=== PATIENT | male | born 1960 | race African-American/Black ===

== ENCOUNTER 2018-11-18 16:23 | Emergency (ER) | payer OTHER ==
[~2018-11-18] VITALS: Ht 180.3 cm; Wt 77.0 kg
[2018-11-18 18:21] VITALS: BP 152/79
== END 2018-11-18 18:21 | DRG 87 ==
LOC: ED 16:23
DX: S02.0XXA Fracture of vault of skull, initial encounter for closed fracture (principal); S06.4X0A Epidural hemorrhage without loss of consciousness, initial encounter; S00.411A Abrasion of right ear, initial encounter; R51 Headache; Y08.89XA Assault by other specified means, initial encounter; W20.8XXA Other cause of strike by thrown, projected or falling object, initial encounter; Y92.149 Unspecified place in prison as the place of occurrence of the external cause